=== PATIENT | male | born 1990 | race Caucasian/White ===

== ENCOUNTER 2023-05-04 19:00 | Emergency (ER) | payer BC, OTHER ==
--- NOTE | 2023-05-04 20:46 | ERPHSYRPT ---
- History of Present Illness Time Seen by Provider: 05/04/23 20:45 Source: patient Exam Limitations: no limitations Physician History: This is a 32-year-old white male patient who has had a sore throat for 2 weeks that has been intermittent primarily with yawning. However symptoms became worse today. The symptoms are constant. Worsens when he swallows or if he turns his head to the left or right. He also noticed some tenderness in swelling of lymph nodes on the side of his neck. He has not had any fever or cough. He denies nausea vomiting and diarrhea symptoms. Cough Quality/Degree: no cough Possible Cause: no prior episodes Modifying Factors: Improves With: other (Worse when he swallows) Associated Symptoms: sore throat, No fever, No chills, No chest pain/soreness, No cough, No headache, No muscle aches, No shortness of breath Allergies/Adverse Reactions: No Known Drug Allergies Allergy (Verified 05/04/23 20:47) Home Medications: No Home Meds [No Home Meds] 1 [facility] 12/31/14 [History] Hx Tetanus, Diphtheria Vaccination/Date Given: Yes Hx Influenza Vaccination/Date Given: No Hx Pneumococcal Vaccination/Date Given: No Travel Risk - International Travel Have you traveled outside of the country in past 3 weeks: No - Coronavirus Screening Are you exhibiting any of the following symptoms?: No Close contact with a COVID-19 positive Pt in past 14-21 Days: No - Review of Systems Constitutional: No Symptoms Eyes: No Symptoms Ears, Nose, & Throat: Throat Pain Respiratory: No Symptoms Cardiac: No Symptoms Abdominal/Gastrointestinal: No Symptoms Genitourinary Symptoms: No Symptoms Musculoskeletal: No Symptoms Skin: No Symptoms Neurological: No Symptoms Psychological: No Symptoms Endocrine: No Symptoms Hematologic/Lymphatic: No Symptoms Immunological/Allergic: No Symptoms All Other Systems: Reviewed and Negative - Past Medical History Pertinent Past Medical History: Yes Other Medical History: HYPOGLYCEMIA - Past Surgical History Past Surgical History: No - Social History Smoking Status: Never smoker Exposure to second hand smoke: No Alcohol Use: Socially Drug Use: none Patient Lives Alone: No Significant Family History: no pertinent family hx - Nursing Vital Signs Nursing Vital Signs: Initial Vital Signs Pulse Rate 91 H 05/04/23 20:48 Respiratory Rate 18 05/04/23 20:48 Blood Pressure 166/98 05/04/23 20:48 O2 Sat by Pulse Oximetry 96 05/04/23 20:48 Pain Scale Pain Intensity 6 - Physical Exam General Appearance: no apparent distress, alert, anxiety Eye Exam: PERRL/EOMI, eyes nml inspection Ears, Nose, Throat Exam: moist mucous membranes, pharyngeal erythema Neck Exam: normal inspection, non-tender, supple, full range of motion, lymphadenopathy (Right upper cervical chain adenopathy to palpation) Respiratory Exam: normal breath sounds, lungs clear, airway intact, No chest tenderness, No respiratory distress Cardiovascular Exam: regular rate/rhythm, normal heart sounds, normal peripheral pulses Gastrointestinal/Abdomen Exam: No tenderness Rectal Exam: not done Back Exam: normal inspection, normal range of motion, No CVA tenderness, No vertebral tenderness Extremity Exam: normal inspection, normal range of motion, pelvis stable Neurologic Exam: alert, oriented x 3, cooperative, death claim clerk II-XII nml as tested, normal mood/affect, nml cerebellar function, nml station & gait, sensation nml Skin Exam: normal color, warm, dry Lymphatic Exam: adenopathy (Upper right cervical adenopathy) SpO2 Interpretation: normal O2 Delivery: Room Air - Course Nursing assessment & vital signs reviewed: Yes Ordered Tests: Medication Summary Discontinued Medications Generic Name Dose Route Start Last Admin Trade Name Glenroy PRN Reason Stop Dose Admin Hydrocodone Bitart/Acetaminophen 10 ml 05/04/23 21:28 05/04/23 21:37 Hydrocodone/Acetaminophen 5 Ml Udcup PO 05/04/23 21:29 Not Given STAT STA Hydrocodone Bitart/Acetaminophen Confirm 05/04/23 21:32 Hydrocodone/Acetaminophen 5 Ml Udcup Administered 05/04/23 21:33 Dose 10 ml .ROUTE .STK-MED ONE Azithromycin 500 mg 05/04/23 21:28 05/04/23 21:35 Azithromycin 250 Mg Tablet PO 05/04/23 21:29 500 mg STAT ONE Administration Azithromycin Confirm 05/04/23 21:32 Azithromycin 250 Mg Tablet Administered 05/04/23 21:33 Dose 500 mg .ROUTE .STK-MED ONE Prednisone 20 mg 05/04/23 21:28 05/04/23 21:35 Prednisone 20 Mg Tablet PO 05/04/23 21:29 20 mg STAT ONE Administration Prednisone Confirm 05/04/23 21:32 Prednisone 20 Mg Tablet Administered 05/04/23 21:33 Dose 20 mg .ROUTE .STK-MED ONE Lab/Rad Data: Laboratory Results 05/04/23 Range/Units 20:51 Influenza Type A Ag NEGATIVE (NEGATIVE) Influenza Type B Ag NEGATIVE (NEGATIVE) RSV (PCR) NEGATIVE (NEGATIVE) SARS-CoV-2 (PCR) NEGATIVE (NEGATIVE) Group A Strep Antibody DETECTED (NEGATIVE) - Progress Progress: improved, re-examined Air Movement: good Progress Note: 05/04/23 21:36 This patient's medical issue is 1 of mild complexity. The level complex in the workup performed is based on review the patient's past medical history, review the patient's medication list, review the patient drug allergy list, history of present illness and physical findings on examination. The workup in this patient includes group A strep test, as well as viral studies. I reviewed and interpreted the results of the testing. Patient is positive for strep infection. We are waiting for the results of the remainder of the studies. We will provide the patient with a dose of amoxicillin, 20 mg of prednisone orally and 10 mL of hydrocodone/acetaminophen to control his sore throat pain. Antibiotics given: Yes Counseled pt/family regarding: lab results, diagnosis, need for follow-up Medical Desision Making - Independent Historian Additional History obtained from: Spouse - Diagnostic Testing Diagnostic test were ordered, analyzed, and reviewed by me: Yes - Risk of complications The pt has a mod risk of morbidity or mortality based on: Need for prescription drug management - Departure Departure Disposition: Home Clinical Impression: Strep pharyngitis Condition: Stable Critical Care Time: No Referrals: NUPUR GARCIA, CPC [[employer] PROFESSION STAFF] - Follow up/PCP as directed Additional Instructions: Drink plenty of clear liquids. May add ibuprofen 600 mg orally 3 times a day with food for pain and fever control. Take your antibiotics as prescribed. Follow-up with your primary care provider for further evaluation management. Prescriptions: Amoxicillin 500 mg Cap [Amoxil 500 mg] 500 mg PO TID #30 cap Prednisone 10 mg [Deltasone 10 mg] 10 mg PO TID #12 tablet Hydrocodone/Acetaminophen [Hydrocodone-Acetamn 7.5-325/15] 10 ml PO Q8H PRN #60 ml MDD 30 ml PRN Reason: Cough
[2023-05-04 21:05] VITALS: TEMP 98.9; O2SAT 97
[2023-05-04 21:19] LABS: Group A Strep DETECTED (NEGATIVE)
[2023-05-04] MEDS ORDERED: Zithromax 250 MG TABLET PO ONE (21:28)
[2023-05-04] MEDS ORDERED: DELTASONE 20 MG PO ONE (21:28)
[2023-05-04] MEDS ORDERED: HYDROCODONE-ACETAMIN 2.5-108/5 ML SOLUTION ONE (21:32)
[2023-05-04] MEDS ORDERED: Zithromax 250 MG TABLET ONE (21:32)
[2023-05-04] MEDS ORDERED: DELTASONE 20 MG ONE (21:32)
[2023-05-04 21:33] LABS: INFLUENZA A NEGATIVE (NEGATIVE); INFLUENZA B NEGATIVE (NEGATIVE); RESPIRATORY SYNCTIAL VIRUS NEGATIVE (NEGATIVE); SARS-CoV-2 Xpert Express NEGATIVE (NEGATIVE)
[2023-05-04] MEDS: HYDROCODONE-ACETAMIN 2.5-108/5 ML SOLUTION PO STA ×2 (21:36→21:37)
[2023-05-04 21:54] VITALS: BP 136/89; PULSE 80; RESP 16
== END 2023-05-04 21:53 | disposition home or self-care (01) ==
LOC: ED 19:00
DX: J02.0 Streptococcal pharyngitis (principal); Z79.52 Long term (current) use of systemic steroids; Z79.891 Long term (current) use of opiate analgesic
CPT/HCPCS: 0241U; 87651; 99283; A9270-GY

== ENCOUNTER 2024-05-25 15:54 | Emergency (ER) | payer BC, OTHER ==
[2024-05-25 16:04] VITALS: TEMP 97; O2SAT 98
[2024-05-25] MEDS: Robitussin AC Syrup Unit Dose Cup PO ONE (16:33)
[2024-05-25] MEDS ORDERED: Robitussin AC Syrup Unit Dose Cup ONE (16:33)
--- NOTE | 2024-05-25 16:42 | ERPHSYRPT ---
- History of Present Illness Time Seen by Provider: 05/25/24 16:40 Source: patient Exam Limitations: no limitations Patient Subjective Stated Complaint: C/O cough, runny nose for 6 days Triage Nursing Assessment: Patient ambulated back to ER wearing a mask. Clear nasal drainage present. Cough; non-productive. No SOB. SKin tone normal. WILDER WNL. Alert and oriented. Physician History: C/O cough, runny nose for 6 days Cough; non-productive. No SOB. Timing/Duration: day(s) (Six days) Cough Quality/Degree: moderate, dry cough Possible Cause: no prior episodes Associated Symptoms: cough, earache, headache, muscle aches, nasal congestion, nasal drainage, sore throat Allergies/Adverse Reactions: No Known Drug Allergies Allergy (Verified 05/25/24 15:58) Hx Tetanus, Diphtheria Vaccination/Date Given: Yes Hx Influenza Vaccination/Date Given: No Hx Pneumococcal Vaccination/Date Given: No Immunizations Up to Date: Yes Travel Risk - International Travel Have you traveled outside of the country in past 3 weeks: No - Emerging Infectious Disease Are you exhibiting symptoms associated with any current EIDs: Yes Symptoms: Cough: New Onset, Diarrhea, Headaches/Body Aches/, Other (Please Comment) Comment: runny nose, sorethroat - Review of Systems Constitutional: No Fever, No Chills Eyes: No Symptoms Ears, Nose, & Throat: No Symptoms, Ear Pain, Nose Congestion, Nose Discharge, Sinus Drainage, Throat Pain Respiratory: Cough, No Dyspnea Cardiac: No Chest Pain, No Edema, No Syncope Abdominal/Gastrointestinal: No Abdominal Pain, No Nausea, No Vomiting, No Diarrhea Genitourinary Symptoms: No Dysuria Musculoskeletal: No Back Pain, No Neck Pain Skin: No Rash Neurological: No Dizziness, No Focal Weakness, No Sensory Changes Psychological: No Symptoms Endocrine: No Symptoms All Other Systems: Reviewed and Negative - Past Medical History Pertinent Past Medical History: Yes Neurological History: No Pertinent History ENT History: No Pertinent History Cardiac History: Hypertension Respiratory History: No Pertinent History Endocrine Medical History: Hypoglycemia, Other Musculoskeletal History: No Pertinent History GI Medical History: No Pertinent History History: No Pertinent History Psycho-Social History: Anxiety Male Reproductive Disorders: No Pertinent History Other Medical History: HYPOGLYCEMIA - Past Surgical History Past Surgical History: No Neuro Surgical History: No Pertinent History Cardiac: No Pertinent History Respiratory: No Pertinent History Gastrointestinal: No Pertinent History Genitourinary: No Pertinent History Musculoskeletal: No Pertinent History Male Surgical History: No Pertinent History Significant Family History: no pertinent family hx - Social History Smoking Status: Former smoker How long have you smoked: 11 Exposure to second hand smoke: No Alcohol Use: Socially Drug Use: marijuana Patient Lives Alone: No - Social Determinants of Health Will the patient participate in the screening: Yes Do you worry about a steady place to live?: No Do you have any problems with any of the following?: No known problems In the past 12 months,have you had to go without utilities?: No Transportation Issues: No Has anyone in your support network made you feel unsafe?: No Have you or anyone in your house had to go without enough: No - Nursing Vital Signs Nursing Vital Signs: Initial Vital Signs Temperature 97 F 05/25/24 15:58 Pulse Rate 100 H 05/25/24 15:58 Respiratory Rate 20 05/25/24 15:58 Blood Pressure 159/92 05/25/24 15:58 O2 Sat by Pulse Oximetry 98 05/25/24 15:58 Pain Scale Pain Intensity 0 - Physical Exam General Appearance: no apparent distress, alert Eye Exam: PERRL/EOMI, eyes nml inspection Ears, Nose, Throat Exam: normal ENT inspection, TMs normal, moist mucous membranes, TM abnormal (R), TM abnormal (L), pharyngeal erythema Neck Exam: normal inspection, non-tender, supple, full range of motion Respiratory Exam: normal breath sounds, lungs clear, No respiratory distress Cardiovascular Exam: regular rate/rhythm, normal heart sounds Gastrointestinal/Abdomen Exam: soft, No tenderness Back Exam: normal inspection, No CVA tenderness, No vertebral tenderness Extremity Exam: normal inspection, normal range of motion Neurologic Exam: alert, oriented x 3, cooperative, normal mood/affect, sensation nml, No motor deficits Skin Exam: normal color, warm, dry, No rash Lymphatic Exam: No adenopathy SpO2 Interpretation: normal SpO2: 98 O2 Delivery: Room Air - Course Nursing assessment & vital signs reviewed: Yes - Radiology Exams Chest X-ray Interpretation: Interpreted by me, Reviewed by me, No Pneumonia Ordered Tests: Active Orders 24 hr Category Date Time Status CHEST 2 VIEWS (PA AND LAT) Stat Exams 05/25/24 16:29 Taken BMP Stat Lab 05/25/24 16:48 Completed CBC W DIFF Stat Lab 05/25/24 16:48 Completed Medication Summary Discontinued Medications Generic Name Dose Route Start Last Admin Trade Name Glenroy PRN Reason Stop Dose Admin Guaifenesin/Codeine Phosphate 10 ml 05/25/24 16:30 05/25/24 16:33 Guaifenesin/Codeine Phosphate 5 Ml Udcup PO 05/25/24 16:31 10 ml ONCE ONE Administration Guaifenesin/Codeine Phosphate Confirm 05/25/24 16:33 Guaifenesin/Codeine Phosphate 5 Ml Udcup Administered 05/25/24 16:34 Dose 10 ml .ROUTE .foodpanda / hellofood-MED ONE Lab/Rad Data: Laboratory Result Diagrams 05/25/24 16:48 05/25/24 16:48 Laboratory Results 05/25/24 05/25/24 05/25/24 Range/Units 16:48 16:48 16:48 WBC (4.23-9.07) x10^3/uL RBC (4.63-6.08) x10^6/uL Hgb (13.7-17.5) g/dL Hct (40.1-51.0) % MCV (79.0-92.2) fL MCH (25.7-32.2) pg MCHC (32.3-36.5) g/dL RDW (11.6-14.4) % Plt Count (163-337) x10^3/uL MPV (9.4-12.4) fL Gran % (34.0-67.9) % Immature Gran % (Auto) (0.001-0.429) % Nucleat RBC Rel Count (0.00-0.2) % Eos # (Auto) (0.04-0.54) x10^3/uL Immature Gran # (Auto) (0.001-0.031) x10^3u/L Absolute Lymphs (auto) (1.32-3.57) x10^3/uL Absolute Monos (auto) (0.30-0.82) x10^3/uL Absolute Nucleated RBC (0.00-0.012) x10^3u/L Lymphocytes % (21.8-53.1) % Monocytes % (5.3-12.2) % Eosinophils % (0.8-7.0) % Basophils % (0.2-1.2) % Absolute Granulocytes (1.78-5.38) x10^3/uL Basophils # (0.01-0.08) x10^3/uL Sodium 140 (135-145) mmol/L Potassium 3.8 (3.5-5.1) mmol/L Chloride 104 (98-107) mmol/L Carbon Dioxide 25 (22-30) mmol/L Anion Gap 13.9 (5-15) MEQ/L BUN 11 (9-20) mg/dL Creatinine 1.12 (0.66-1.25) mg/dL Estimated GFR 89.5 ML/MIN Glucose 144 H (74-106) mg/dL Calcium 8.9 (8.4-10.2) mg/dL Influenza Type A Ag NEGATIVE (NEGATIVE) Influenza Type B Ag NEGATIVE (NEGATIVE) RSV (PCR) NEGATIVE (NEGATIVE) SARS-CoV-2 (PCR) NEGATIVE (NEGATIVE) Group A Strep Antibody NOT DETECTED (NEGATIVE) 05/25/24 Range/Units 16:48 WBC 4.9 (4.23-9.07) x10^3/uL RBC 5.77 (4.63-6.08) x10^6/uL Hgb 16.7 (13.7-17.5) g/dL Hct 49.6 (40.1-51.0) % MCV 86.0 (79.0-92.2) fL MCH 28.9 (25.7-32.2) pg MCHC 33.7 (32.3-36.5) g/dL RDW 11.9 (11.6-14.4) % Plt Count 179 (163-337) x10^3/uL MPV 10.1 (9.4-12.4) fL Gran % 55.7 (34.0-67.9) % Immature Gran % (Auto) 0.2 (0.001-0.429) % Nucleat RBC Rel Count 0.0 (0.00-0.2) % Eos # (Auto) 0.06 (0.04-0.54) x10^3/uL Immature Gran # (Auto) 0.01 (0.001-0.031) x10^3u/L Absolute Lymphs (auto) 1.54 (1.32-3.57) x10^3/uL Absolute Monos (auto) 0.51 (0.30-0.82) x10^3/uL Absolute Nucleated RBC 0.00 (0.00-0.012) x10^3u/L Lymphocytes % 31.8 (21.8-53.1) % Monocytes % 10.5 (5.3-12.2) % Eosinophils % 1.2 (0.8-7.0) % Basophils % 0.6 (0.2-1.2) % Absolute Granulocytes 2.70 (1.78-5.38) x10^3/uL Basophils # 0.03 (0.01-0.08) x10^3/uL Sodium (135-145) mmol/L Potassium (3.5-5.1) mmol/L Chloride (98-107) mmol/L Carbon Dioxide (22-30) mmol/L Anion Gap (5-15) MEQ/L BUN (9-20) mg/dL Creatinine (0.66-1.25) mg/dL Estimated GFR ML/MIN Glucose (74-106) mg/dL Calcium (8.4-10.2) mg/dL Influenza Type A Ag (NEGATIVE) Influenza Type B Ag (NEGATIVE) RSV (PCR) (NEGATIVE) SARS-CoV-2 (PCR) (NEGATIVE) Group A Strep Antibody (NEGATIVE) - Progress Progress: improved Air Movement: good Blood Culture(s) Obtained: No Antibiotics given: No Counseled pt/family regarding: lab results, diagnosis, need for follow-up, rad results Medical Desision Making - Diagnostic Testing Diagnostic test were ordered, analyzed, and reviewed by me: Yes Radiological Interpretation: Interpreted by me, Reviewed by me - Risk of complications Minimal Risk: Minimal risk of morbidity - Departure Departure Disposition: Home Clinical Impression: Viral syndrome Sinusitis Qualifiers: Sinusitis location: maxillary Chronicity: acute Recurrence: non-recurrent Qualified Code(s): J01.00 - Acute maxillary sinusitis, unspecified Condition: Stable Critical Care Time: No Referrals: KYLIE KIMBALL DO [Primary Care Provider] - Follow up/PCP as directed Instructions: Sinusitis in adults, Upper Respiratory Infection ED Additional Instructions: Discharge/Care Plan STEPH SHORE was seen on 05/25/24 in the Emergency Room. The patient was counseled regarding Diagnosis,Lab results, Imaging studies, need for follow up and when to return to the Emergency Room. Prescriptions given: Discharge Note I have spoken with the patient and/or caregivers. I have explained the patient's condition, diagnosis and treatment plan based on the information available to me at this time. I have answered the patient's and/or caregiver's questions and addressed any concerns. The patient and/or caregivers have as good understanding of the patient's diagnosis, condition and treatment plan as can be expected at this point. The vital signs have been stable. The patient's condition is stable and appropriate for discharge from the emergency department. The patient will pursue further outpatient evaluation with the primary care physician or other designated or consulting physician as outlined in the discharge instructions. The patient and/or caregivers are agreeable to this plan of care and follow-up instructions have been explained in detail. The patient a nd/or caregivers have received these instruction. The patient/and or caregivers are aware that any significant change in condition or worsening of symptoms should prompt an immediate return to this or the closest emergency department or call 911. SILVIANOSTEPH SALMON was seen on 05/25/24 n the Emergency Room. At that time you were treated for an emergent condition, during your visit Laboratory, Radiology and/or other procedures may have been ordered. It is very important that you follow-up with your Primary Care Physician KYLIE KIMBALL DO within the next 24-48 hours to review your Emergency Room visit and the final results of testing that was ordered. Some test results such as Urine Cultures, Blood Cultures, and other cultures if ordered will not be finalized for 24-48 hours. If you do not have a Primary Care Provider please call the medical records department at [phone] ext [phone] to obtain a copy of your results or you may sign into our patient portal to obtain these results by visiting us @ [email or web address] and completing the following steps: 1. Click on the Patient Portal link 2. Click the Patient Self Enrollment Link to complete the enrollment form and entering your 3. Once the enrollment form is completed you will receive an email with a tempor addy ID and password at the email address you provided. 4. Next choose a user name and password. Your user name must be at least 4 characters long and your password must be at least 4 characters long. 5. Choose a security question from the list and provide your answer to the question. If you already have signed into the Health Portal you may access your Health Care Information 15/12 by the following steps: 1. Login to our website @ [email or web address] 2. Enter your original user name and password. FAQS The [facility] Health Portal is an online tool that contains your Lab Results, Radiology Reports, Visit History, Discharge Instructions and Health Summary Lab and Radiology Results will not be available for 72 hours on the portal. The Portal is a secure site, passwords are encryted and URLs are re-written so they cannot be copied and pasted. You and authorized family members are the only ones who can access your Portal. Also there is a timeout feature that protects your information if you leave the Portal page open. If you have technical difficulty please use the Contact Us link on the page this will allow you to submit any questions you have regarding the Portal or you may contact the Medical Record Department at [phone] ext [phone]. Prescriptions: Guaifenesin/Dextromethorphan [Mucinex Dm ER 1,200-60 mg Tab] 1 each PO BID #14 tablet
[2024-05-25 16:50] LABS: BASOPHIL % 0.6 % (0.2-1.2); Basophil (Absolute #) 0.03 x10^3/uL (0.01-0.08); Eosinophil % 1.2 % (0.8-7.0); Eosinophil (Absolute #) 0.06 x10^3/uL (0.04-0.54); Hematocrit 49.6 % (40.1-51.0); Hemoglobin 16.7 g/dL (13.7-17.5); IMMATURE GRAN # 0.01 x10^3u/L (0.001-0.031); IMMATURE GRAN % 0.2 % (0.001-0.429); Lymphocyte (Absolute #) 1.54 x10^3/uL (1.32-3.57); Lymphocytes % 31.8 % (21.8-53.1); Mean Corpuscular Hemoglobin 28.9 pg (25.7-32.2); Mean Corpuscular Hgb Concent. 33.7 g/dL (32.3-36.5); Mean Platelet Volume 10.1 fL (9.4-12.4); Monocyte (Absolute #) 0.51 x10^3/uL (0.30-0.82); Monocytes % 10.5 % (5.3-12.2); Neutrophil % 55.7 % (34.0-67.9); Platelet Count 179 x10^3/uL (163-337); Red Blood Count 5.77 x10^6/uL (4.63-6.08); Red Cell Distribution Width 11.9 % (11.6-14.4); White Blood Count 4.9 x10^3/uL (4.23-9.07)
[2024-05-25 17:07] LABS: ANION GAP 13.9 MEQ/L (5-15); Calcium 8.9 mg/dL (8.4-10.2); Creatinine 1 1.12 mg/dL (0.66-1.25); EST GLOMERULAR FILTRATION RATE 89.5 ML/MIN; Potassium 3.8 mmol/L (3.5-5.1)
[2024-05-25 17:08] VITALS: BP 150/90; PULSE 90; RESP 19
[2024-05-25 17:26] LABS: INFLUENZA A NEGATIVE (NEGATIVE); INFLUENZA B NEGATIVE (NEGATIVE); RESPIRATORY SYNCTIAL VIRUS NEGATIVE (NEGATIVE); SARS-CoV-2 Xpert Express NEGATIVE (NEGATIVE)
--- NOTE | 2024-05-25 18:14 | XRAY ---
Indication: Cough. Comparison: May 27, 2019 PA/lateral chest remains inflated and clear. Heart not enlarged. Bony thorax intact. No new/acute findings.
== END 2024-05-25 18:33 | disposition home or self-care (01) ==
LOC: ED 15:54
DX: B34.9 Viral infection, unspecified (principal); J01.00 Acute maxillary sinusitis, unspecified; R05.1 Acute cough; I10 Essential (primary) hypertension; Z79.899 Other long term (current) drug therapy
CPT/HCPCS: 0241U; 36415; 71046; 80048; 85025; 87651; 99285; 99283; A9270-GY